=== PATIENT | male | born 1960 | race Caucasian/White ===

== ENCOUNTER → 2024-09-16 | Outpatient (CLI) | payer OTHER, SELFPAY ==
--- NOTE | 2024-09-16 10:15 | XR_ITS ---
Examination: MRI lumbar spine without contrast Date and time of exam: September 16, 2024 1034 hours Comparison March 25, 2020 INDICATIONS: Low back pain 10 years radiating down the legs Technique: Multiple MRI axial and sagittal sections lumbar spine. Sagittal T2-weighted images, TR 3500, TE 118 T1 weighted transverse sections, TR 688 T8.5, T2-weighted sagittal sections T1 weighted sagittal sections TR 621, TE 30 T2 axial sections, TR 4, 190, TE 84. Findings: Satisfactory alignment lumbar vertebral bodies Mild disc narrowing L2-L3, L4-L5 Diffuse lumbar disc dislocation L5-S1 3 mm central lumbar disc bulge contiguous with the right and left S1 nerve roots L4-L5 5 mm central lumbar disc bulge extending to the foraminal regions with mild left L4 ganglionic compression L3-L4 no disc protrusion L2-L3 small foraminal disc bulges L1-L2 no disc protrusion IMPRESSION: L5-S1 3 mm central lumbar disc bulge contiguous with the right and left S1 nerve roots L4-L5 5 mm central lumbar disc bulge extending to the foraminal regions with mild left L4 ganglionic compression
== END | disposition home or self-care (01) ==
LOC: SMRI 09:36
PROVIDERS: PCP Family Medicine; Referring Provider Family Medicine; Visit Provider Family Medicine
DX: M51.379 Other intervertebral disc degeneration, lumbosacral region without mention of lumbar back pain or lower extremity pain (principal); G95.29 Other cord compression
CPT/HCPCS: 72148